=== PATIENT | male | born 1945 | race Caucasian/White ===

== ENCOUNTER 2023-10-29 12:23 | Emergency (ER) | payer MEDICARE, OTHER ==
[~2023-10-29] VITALS: Ht 188 cm; Wt 97.5 kg
[2023-10-29] MEDS: IBUPROFEN 400 MG TABLET PO ONE (12:53)
[2023-10-29] MEDS ORDERED: IBUPROFEN 400 MG TABLET ONE (12:55)
[2023-10-29] MEDS ORDERED: LIDOCAINE 2% 20 ML MDV ONE (12:55)
[2023-10-29] MEDS ORDERED: TRAM-351 PO (14:21)
[2023-10-29 15:16] VITALS: BP 152/102; TEMP 98; O2SAT 98
== END 2023-10-29 15:17 | disposition home or self-care (01) ==
LOC: ER 12:23
DX: S52.591A Other fractures of lower end of right radius, initial encounter for closed fracture (principal); S52.612A Displaced fracture of left ulna styloid process, initial encounter for closed fracture; I10 Essential (primary) hypertension; W19.XXXA Unspecified fall, initial encounter; Y93.89 Activity, other specified; Y92.89 Other specified places as the place of occurrence of the external cause; Y99.8 Other external cause status; I48.91 Unspecified atrial fibrillation; N42.9 Disorder of prostate, unspecified; Z88.8 Allergy status to other drugs, medicaments and biological substances
CPT/HCPCS: 25605; 99284; 73130 ×2; 73110; J3490

== ENCOUNTER 2023-11-02 14:44 | Emergency (ER) | payer MEDICARE, OTHER ==
[~2023-11-02] VITALS: Ht 188 cm; Wt 99.8 kg
[~2023-11-02 14:44] MED LIST: TRAM-351 PO
[2023-11-02 15:08] VITALS: TEMP 98.2
[2023-11-02 19:02] VITALS: BP 145/90; O2SAT 97
== END 2023-11-02 18:10 | disposition left against medical advice (07) ==
LOC: ER 14:46
DX: M79.602 Pain in left arm (principal); I10 Essential (primary) hypertension; I48.91 Unspecified atrial fibrillation; Z88.8 Allergy status to other drugs, medicaments and biological substances
CPT/HCPCS: 93930-TC; 93971-TC